=== PATIENT | female | born 1935 | race Caucasian/White ===

== ENCOUNTER 2023-07-03 16:35 | Emergency (ER) | payer OTHER ==
[~2023-07-03] VITALS: Ht 157.5 cm; Wt 99.8 kg
[2023-07-03 17:30] LABS: BASOPHILS # (AUTO) 0.1 K/uL (0.0-0.2); BASOPHILS % (AUTO) 0.6 % (0.0-2.0); EOSINOPHILS # (AUTO) 0.1 K/uL (0.0-0.7); EOSINOPHILS % (AUTO) 1.1 % (0.0-6.0); HEMATOCRIT 45 % (33-45); HEMOGLOBIN 14.6 g/dL (11.5-14.8); LYMPHOCYTES % (AUTO) 29.3 % (20.0-44.0); MEAN CORPUSCULAR HEMOGLOBIN 29 PG (26.0-33.0); MEAN CORPUSCULAR HGB CONC 33 g/dl (31.0-36.0); MEAN CORPUSCULAR VOLUME 89 fL (82-100); MONOCYTES # (AUTO) 0.7 K/uL (0.1-1.30); MONOCYTES % (AUTO) 6.9 % (2.0-12.0); NEUTROPHILS # (AUTO) 6.4 K/uL (1.8-8.9); NEUTROPHILS % (AUTO) 62.1 % (43.0-81.0); PLATELET COUNT (AUTO) 126 K/uL (150-450); RED BLOOD CELL COUNT(AUTO) 5.06 MIL/uL (4.0-5.2); RED CELL DISTRIBUTION WIDTH 15.5 % (11.5-15.0); WHITE BLOOD COUNT (AUTO) 10.4 K/uL (4.3-11.0)
[2023-07-03] MEDS ORDERED: ONDANSETRON HCL/PF 4 MG/2 ML VIAL IV ONE (17:30)
[2023-07-03] MEDS ORDERED: MORPHINE SULFATE INJ 4 MG/ML DISP.SYRIN IV PRN (17:30)
[2023-07-03 17:41] LABS: CREATININE 1.1 mg/dL (0.6-1.3); POTASSIUM 3.4 mmol/L (3.5-5.1)
[2023-07-03] MEDS ORDERED: AMLO-213 PO (17:52)
[2023-07-03] MEDS ORDERED: TRAZ-257 PO (17:52)
[2023-07-03] MEDS ORDERED: OMEP40CA21 PO (17:52)
[2023-07-03] MEDS ORDERED: LOSA1TAB39 PO (17:52)
[2023-07-03] MEDS ORDERED: HYDR-500 PO (17:52)
[2023-07-03] MEDS ORDERED: MIRT-90 PO (17:52)
[2023-07-03] MEDS ORDERED: CHOL100043 PO (17:52)
[2023-07-03] MEDS ORDERED: ONDANSETRON HCL/PF 4 MG/2 ML VIAL ONE (18:28)
[2023-07-03] MEDS ORDERED: MORPHINE SULFATE INJ 4 MG/ML DISP.SYRIN ONE (18:28)
[2023-07-03 22:30] VITALS: BP 128/71; TEMP 98.3; O2SAT 99
== END 2023-07-03 22:32 | disposition left against medical advice (07) ==
LOC: IVT 16:52
DX: M51.36 Other intervertebral disc degeneration, lumbar region (principal); M54.50 Low back pain, unspecified; E87.6 Hypokalemia; R26.89 Other abnormalities of gait and mobility; I10 Essential (primary) hypertension; E11.9 Type 2 diabetes mellitus without complications; G89.29 Other chronic pain; F32.A Depression, unspecified
CPT/HCPCS: 99285; 96374; 72131; 71045; 96375; 93005; 85025; 80048; 36415; J2270 ×2; J2405 ×2